=== PATIENT | male | born 1960 | race Caucasian/White ===

== ENCOUNTER 2022-11-23 16:59 | Emergency (ER) | payer OTHER ==
[2022-11-23] MEDS ORDERED: Enoxaparin 100 MG/1 ML Syringe SUBCUT ONE (18:15)
== END 2022-11-23 18:30 | disposition home or self-care (01) ==
LOC: JP.ED 16:59
DX: I82.401 Acute embolism and thrombosis of unspecified deep veins of right lower extremity (principal); D68.51 Activated protein C resistance; E78.00 Pure hypercholesterolemia, unspecified; E11.9 Type 2 diabetes mellitus without complications; F17.210 Nicotine dependence, cigarettes, uncomplicated; Z79.01 Long term (current) use of anticoagulants
CPT/HCPCS: 96372; 99283; J1650